=== PATIENT | female | born 1965 | race Asian ===

== ENCOUNTER 2019-04-23 15:16 | Emergency (ER) | payer OTHER ==
--- NOTE | 2019-04-23 15:19 | PDOC ---
History of Present Illness - General Chief Complaint: Sore Throat Stated Complaint: THROAT PROBLEM Time Seen by Provider: 04/23/19 15:19 History Source: Patient - History of Present Illness Initial Comments: 04/23/19 16:00 Pt presents to the ED complaining of a 6 day history of sore throat, hoarse voice, dry cough and nasal congestion. Denies fevers. States that her has been sick with similar symptoms. Tolerating PO. Past History - Past Medical History Allergies/Adverse Reactions: Allergies Allergy/AdvReac Type Severity Reaction Status Date / Time No Known Allergies Allergy Verified 04/23/19 15:18 Home Medications: Ambulatory Orders NK [No Known Home Medication] 04/23/19 Anemia: No Asthma: No Cancer: No Cardiac Disorders: No CVA: No COPD: No CHF: No Dementia: No Diabetes: No GI Disorders: Yes (GERD, DIVERTICULOSIS) Disorders: No HTN: No Hypercholesterolemia: No Liver Disease: No Seizures: No Thyroid Disease: No - Surgical History Abdominal Surgery: No Appendectomy: No Cardiac Surgery: No Cholecystectomy: No Lung Surgery: No Neurologic Surgery: No Orthopedic Surgery: No - Psycho Social/Smoking Cessation Hx Smoking Status: No Smoking History: Never smoked Have you smoked in the past 12 months: No Number of Cigarettes Smoked Daily: 0 Hx Alcohol Use: No Drug/Substance Use Hx: No Substance Use Type: None Hx Substance Use Treatment: No Review of Systems - Review of Systems Able to Perform ROS?: Yes Is the patient limited Cuban proficient: No Constitutional: Yes: Malaise HEENTM: Yes: Nose Congestion, Throat Pain Respiratory: Yes: Cough Cardiac (ROS): No: Symptoms Reported, Chest Pain, Edema, Irregular Heart Rate, Lightheadedness, Palpitations, Syncope, Chest Tightness, Other ABD/GI: No: Abdominal Distended, Abd. Pain w/ defecation, Blood Streaked Bowels , Constipated, Diarrhea, Difficulty Swallowing, Nausea, Poor Appetite, Poor Fluid Intake, Rectal Bleeding, Vomiting, Indigestion, Abdominal cramping, Tarry Stools, Other *Physical Exam - Physical Exam 04/23/19 16:16 gen: alert, NAD HEENT; TMs clear b/l. Throat: mild tonsilar swelling and erythema. No exudate uvula midline Cv: rrr no m/r/g Pulm: cta b/l Medical Decision Making - Medical Decision Making 04/23/19 16:17 Pt presents to the ED complaining of sore throat, dry cough and nasal congestion. Rapid strep is negative. Most likely viral pharyngitis. Will discharge home with instructions to return to the ED for worsening symptoms. Discharge - Discharge Information Problems reviewed: Yes Clinical Impression/Diagnosis: Pharyngitis Qualifiers: Pharyngitis/tonsillitis etiology: unspecified etiology Qualified Code(s): J02.9 - Acute pharyngitis, unspecified - Admission No - Follow up/Referral - Patient Discharge Instructions Patient Printed Discharge Instructions: Viral Pharyngitis Additional Instructions: return to the ED for severe pain, nausea or vomiting, severe throat swelling unable to swallow or breathe. - Post Discharge Activity
[2019-04-23 15:33] VITALS: BP 141/79; PULSE 88; TEMP 98.4; BMI 29.7
== END 2019-04-23 16:08 | disposition home or self-care (01) ==
LOC: FER 15:16
DX: J02.9 Acute pharyngitis, unspecified (principal)
CPT/HCPCS: 87070; 87880; 99281-25

== ENCOUNTER 2020-11-19 21:09 | Emergency (ER) | payer OTHER ==
[2020-11-19 21:22] VITALS: BP 130/83; PULSE 60; TEMP 98; BMI 29.2
[2020-11-19] MEDS ORDERED: ONDANSETRON 4 MG/2 ML VIAL IVPUSH ONE (21:56)
[2020-11-19] MEDS ORDERED: FAMOTIDINE 20 MG/50 ML IVPB 20 MG/50 ML MG IVPB ONE ×2 (21:56→22:01)
[2020-11-19] MEDS ORDERED: ACETAMINOPHEN 1000 MG/100 ML VIAL (NON FORMULARY) IVPB ONE (21:56)
[2020-11-19] MEDS ORDERED: SODIUM CHLORIDE 1,000 ML IV STA (21:56)
[2020-11-19] MEDS ORDERED: ACETAMINOPHEN INJECTION 100 ML IVPB ONE (22:01)
[2020-11-19] MEDS ORDERED: ONDANSETRON 4 MG/2 ML VIAL ONE (22:02)
[2020-11-19 22:40] LABS: BASO % 0.6 % (0-2.0); EOS % 1.3 % (0-4.5); HEMATOCRIT 40.4 % (32.4-45.2); HEMOGLOBIN 14.3 GM/dl (10.7-15.3); LYMPH % 28.6 % (8-40); MCHC 35.4 g/dl (32.0-36.0); MEAN CELL VOLUME 90.5 fl (80-96); MEAN PLT VOLUME 8.8 fl (7.5-11.1); MONO % 6.3 % (3.8-10.2); NEUT % 63.2 % (42.8-82.8); PLATELET COUNT 292 10^3/uL (134-434); RBC 4.47 M/mm3 (3.60-5.2); RDW 12.6 % (11.6-15.6); WHITE BLOOD COUNT 7.4 K/mm3 (4.0-10.8)
[2020-11-19 22:46] LABS: EPITHELIAL CELLS RARE /hpf
[2020-11-19 22:49] LABS: ALK PHOS 113 U/L (45-117); ANION GAP 10 MMOL/L (8-16); BILIRUBIN,TOTAL 0.4 mg/dl (0.2-1); CALCIUM 8.7 mg/dl (8.5-10); CHLORIDE 100 mmol/L (98-107); CO2 29 mmol/L (21-32); CREATININE 0.7 mg/dl (0.55-1.3); GLUCOSE,RANDOM 99 mg/dl (74-106); SGOT/AST 22 U/L (15-37); SGPT/ALT 17 U/L (13-61); SODIUM 139 mmol/L (136-145); TOT PROT 7.5 g/dl (6.4-8.2)
[2020-11-19] MEDS ORDERED: morphine CARPU-JECT 2 MG/1 ML DISP.SYRIN IVPUSH ONE (22:50)
[2020-11-19] MEDS ORDERED: morphine SULFATE 4 MG/ML VIAL ONE (22:51)
[2020-11-19 23:44] LABS: LIPASE 156 U/L (73-393)
[2020-11-20] MEDS ORDERED: morphine CARPU-JECT 2 MG/1 ML DISP.SYRIN IVPUSH ONE (00:09)
[2020-11-20] MEDS ORDERED: AMOX TR/POT CLAV 875MG/125MG TABLETS (FP) PO ONE (00:12)
[2020-11-20] MEDS ORDERED: AMOX TR/POT CLAV 875MG/125MG TABLETS (FP) ONE (00:14)
== END 2020-11-20 00:28 | disposition home or self-care (01) ==
LOC: FER 21:09
PROC: 3E0333Z Introduction of Anti-inflammatory into Peripheral Vein, Percutaneous Approach (ICD-10-PCS; principal; 2020-11-19)
PROC: 3E033GC Introduction of Other Therapeutic Substance into Peripheral Vein, Percutaneous Approach (ICD-10-PCS; 2020-11-19)
PROC: 3E033NZ Introduction of Analgesics, Hypnotics, Sedatives into Peripheral Vein, Percutaneous Approach (ICD-10-PCS; 2020-11-19)
PROC: 3E033NZ Introduction of Analgesics, Hypnotics, Sedatives into Peripheral Vein, Percutaneous Approach (ICD-10-PCS; 2020-11-19)
PROC: 3E033GC Introduction of Other Therapeutic Substance into Peripheral Vein, Percutaneous Approach (ICD-10-PCS; 2020-11-19)
PROC: 3E0337Z Introduction of Electrolytic and Water Balance Substance into Peripheral Vein, Percutaneous Approach (ICD-10-PCS; 2020-11-19)
DX: K52.9 Noninfective gastroenteritis and colitis, unspecified (principal)
CPT/HCPCS: 36415; 74177-TC; 80053; 81003; 81015; 83690; 84484; 85025; 99285-25; J0131; Q9967

== ENCOUNTER 2020-12-23 05:00 | Day surgery (SDC) | payer OTHER ==
[2020-12-20 17:07] VITALS: BMI 28.9
[2020-12-23] MEDS ORDERED: PROPOFOL 20 ML ONE ×2 (08:05)
[2020-12-23] MEDS ORDERED: KETOROLAC TROMETHAMINE 30 MG/1 ML VIAL ONE (08:21)
[2020-12-23] MEDS ORDERED: ONDANSETRON 4 MG/2 ML VIAL IVPUSH PRN (08:37)
[2020-12-23] MEDS ORDERED: IBUPROFEN 800 MG/8 ML IJ IVPB PRN (08:37)
[2020-12-23] MEDS ORDERED: oxyCODONE HCL 5 MG TABLET PO PRN (08:37)
[2020-12-23] MEDS ORDERED: IBUPROFEN 600 MG TABLET (FP) PO PRN (08:37)
[2020-12-23] MEDS ORDERED: LACTATED RINGERS SOLUTION 1,000 ML IV SCH (08:45)
[2020-12-23] MEDS ORDERED: ELECTROLYTE-148 SOLN 1,000 ML IV SCH (08:45)
[2020-12-23] MEDS ORDERED: ACETAMINOPHEN INJECTION 100 ML IVPB ONE (09:35)
[2020-12-23] MEDS ORDERED: ACETAMINOPHEN 1000 MG/100 ML VIAL (NON FORMULARY) IVPB ONE (09:39)
[2020-12-23] MEDS ORDERED: ONDANSETRON 4 MG/2 ML VIAL ONE (11:46)
[2020-12-23] MEDS ORDERED: ONDANSETRON 4 MG/2 ML VIAL IVPUSH ONE (11:55)
[2020-12-23 15:19] VITALS: BP 137/70; PULSE 58; TEMP 97.8
== END 2020-12-23 13:40 | disposition home or self-care (01) ==
LOC: JASU-SURG 05:00
PROVIDERS: ATTEND Obstetrics & Gynecology
PROC: 0UDB7ZX Extraction of Endometrium, Via Natural or Artificial Opening, Diagnostic (ICD-10-PCS; principal; 2020-12-23 08:00)
PROC: 0UJD8ZZ Inspection of Uterus and Cervix, Via Natural or Artificial Opening Endoscopic (ICD-10-PCS; 2020-12-23 08:00)
DX: N95.0 Postmenopausal bleeding (principal)
CPT/HCPCS: 81025; 88305-TC; 94760; J0131

== ENCOUNTER 2021-03-06 05:06 | Day surgery (SDC) | payer BC, OTHER ==
[2021-03-02 11:45] VITALS: BMI 28.7
[2021-03-06 08:46] VITALS: TEMP 97.8
[2021-03-06 08:55] VITALS: PULSE 56
[2021-03-06 09:10] VITALS: BP 119/76
== END 2021-03-06 09:53 | disposition home or self-care (01) ==
LOC: JASU-ENDO 05:06
PROVIDERS: ATTEND Internal Medicine Gastroenterology
PROC: 0DB98ZX Excision of Duodenum, Via Natural or Artificial Opening Endoscopic, Diagnostic (ICD-10-PCS; 2021-03-06)
PROC: 0DB78ZX Excision of Stomach, Pylorus, Via Natural or Artificial Opening Endoscopic, Diagnostic (ICD-10-PCS; 2021-03-06)
PROC: 0DB48ZX Excision of Esophagogastric Junction, Via Natural or Artificial Opening Endoscopic, Diagnostic (ICD-10-PCS; 2021-03-06)
PROC: 0DBK8ZX Excision of Ascending Colon, Via Natural or Artificial Opening Endoscopic, Diagnostic (ICD-10-PCS; principal; 2021-03-06 08:00)
DX: Z12.11 Encounter for screening for malignant neoplasm of colon (principal); D12.2 Benign neoplasm of ascending colon; K57.30 Diverticulosis of large intestine without perforation or abscess without bleeding; K21.00 Gastro-esophageal reflux disease with esophagitis, without bleeding; K44.9 Diaphragmatic hernia without obstruction or gangrene; K29.40 Chronic atrophic gastritis without bleeding; K64.8 Other hemorrhoids
CPT/HCPCS: 88305-TC; 88342-TC

== ENCOUNTER 2021-04-05 08:54 | Emergency (ER) | payer OTHER ==
[2021-04-05 08:59] VITALS: BP 137/83; PULSE 70; TEMP 97.8; BMI 24.6
[2021-04-05] MEDS ORDERED: DIPHTH,PERTUSS(ACELL),TET 0.5 ML DISP.SYRIN IM ONE ×2 (09:15→09:34)
[2021-04-05 10:22] LABS: BASO % 0.6 % (0-2.0); HEMATOCRIT 39.9 % (32.4-45.2); HEMOGLOBIN 13.6 GM/dL (10.7-15.3); LYMPH % 32.8 % (8-40); MCH 30.7 pg (25.7-33.7); MEAN CELL VOLUME 90.2 fl (80-96); MEAN PLT VOLUME 8.4 fl (7.5-11.1); MONO % 5.4 % (3.8-10.2); NEUT % 59.2 % (42.8-82.8); PLATELET COUNT 251 10^3/uL (134-434); RBC 4.42 M/mm3 (3.60-5.2); RDW 12.9 % (11.6-15.6); WHITE BLOOD COUNT 5.6 K/mm3 (4.0-10.0)
[2021-04-05 10:53] LABS: BLOOD UREA NITROGEN 13.2 mg/dL (7-18)
[2021-04-05 10:54] LABS: ALBUMIN 3.6 g/dl (3.4-5.0)
[2021-04-05 10:56] LABS: CREATININE 0.7 mg/dL (0.55-1.3)
[2021-04-05 10:58] LABS: BILIRUBIN,TOTAL 0.3 mg/dL (0.2-1); TOT PROT 7.5 g/dl (6.4-8.2)
[2021-04-05 12:11] LABS: HIV INTERPRETATION NEGATIVE (NEGATIVE)
== END 2021-04-05 09:45 | disposition home or self-care (01) ==
LOC: JERFT 08:54
PROC: 3E0234Z Introduction of Serum, Toxoid and Vaccine into Muscle, Percutaneous Approach (ICD-10-PCS; principal; 2021-04-05)
DX: S61.250A Open bite of right index finger without damage to nail, initial encounter (principal); Y04.1XXA Assault by human bite, initial encounter; Y93.F9 Activity, other caregiving
CPT/HCPCS: 36415; 80053; 85025; 86704; 86803; 87340; 87389; 87517; 90715; 99284-25

== ENCOUNTER 2021-06-02 18:41 | Emergency (ER) | payer BC, OTHER ==
[2021-06-02 18:49] VITALS: BP 149/74; PULSE 64; TEMP 97.9; BMI 27.9
[2021-06-02] MEDS ORDERED: TETRACAINE 0.5% OPHTH SOLN 2 ML BOTTLE ONE (19:12)
[2021-06-02] MEDS ORDERED: FLUORESCEIN NA 1 EA STRIP ONE (19:13)
[2021-06-02] MEDS ORDERED: TOBRA 0.3%/DEXAMETH 0.1% OPHTHALMIC SUSP 2.5 ML BTL OU STA (19:21)
[2021-06-02] MEDS ORDERED: TOBRA 0.3%/DEXAMETH 0.1% OPHTHALMIC SUSP 2.5 ML BTL ONE (19:28)
== END 2021-06-02 19:54 | disposition home or self-care (01) ==
LOC: FER 18:41
DX: H10.213 Acute toxic conjunctivitis, bilateral (principal)
CPT/HCPCS: 99283-25

== ENCOUNTER 2021-10-22 15:20 | Emergency (ER) | payer OTHER, BC ==
[2021-10-22 15:34] VITALS: BP 120/72; PULSE 66; BMI 28.3
[2021-10-22] MEDS ORDERED: KETOROLAC TROMETHAMINE 30 MG/1 ML VIAL IM ONE (15:44)
[2021-10-22] MEDS ORDERED: KETOROLAC TROMETHAMINE 30 MG/1 ML VIAL ONE (15:45)
== END 2021-10-22 16:23 | disposition home or self-care (01) ==
LOC: JER 15:20 → JERFT 15:20
PROC: 3E0233Z Introduction of Anti-inflammatory into Muscle, Percutaneous Approach (ICD-10-PCS; principal; 2021-10-22)
DX: M79.644 Pain in right finger(s) (principal)
CPT/HCPCS: 73140-TC-RT-FY; 99284-25

== ENCOUNTER 2022-08-26 08:56 | Emergency (ER) | payer BC ==
[2022-08-26 09:15] VITALS: BP 137/77; PULSE 61; RESP 16; TEMP 98.1; BMI 28.3
[2022-08-26] MEDS ORDERED: KETOROLAC TROMETHAMINE 60 MG/2 ML VIAL IM ONE (09:51)
[2022-08-26] MEDS ORDERED: KETOROLAC TROMETHAMINE 30 MG/1 ML VIAL ONE (09:57)
== END 2022-08-26 10:36 | disposition home or self-care (01) ==
LOC: FER 08:56
PROC: 3E0233Z Introduction of Anti-inflammatory into Muscle, Percutaneous Approach (ICD-10-PCS; principal; 2022-08-26)
DX: S93.602A Unspecified sprain of left foot, initial encounter (principal); M79.672 Pain in left foot; R22.42 Localized swelling, mass and lump, left lower limb; W18.42XA Slipping, tripping and stumbling without falling due to stepping into hole or opening, initial encounter; X50.1XXA Overexertion from prolonged static or awkward postures, initial encounter; W18.49XA Other slipping, tripping and stumbling without falling, initial encounter
CPT/HCPCS: 73610-TC-LT-FY; 73630-TC-LT; 99284-25

== ENCOUNTER 2023-08-04 09:57 | Emergency (ER) | payer BC, OTHER, SELFPAY ==
[2023-08-04 10:01] VITALS: BMI 17.8
[2023-08-04] MEDS ORDERED: guaiFENesin/CODEINE 5 ML UNIT-DOSE CUPS PO ONE ×2 (11:57→12:01)
[2023-08-04 11:59] LABS: BASO % 0.6 % (0-2.0); EOS % 0.7 % (0-4.5); HEMATOCRIT 41.5 % (32.4-45.2); HEMOGLOBIN 13.9 GM/dL (10.7-15.3); LYMPH % 30.1 % (8-40); MCH 29.9 pg (25.7-33.7); MCHC 33.5 g/dl (32.0-36.0); MEAN CELL VOLUME 89.3 fl (80-96); MEAN PLT VOLUME 8.2 fl (7.5-11.1); MONO % 6.1 % (3.8-10.2); NEUT % 62.5 % (42.8-82.8); PLATELET COUNT 202 10^3/uL (134-434); RBC 4.65 M/mm3 (3.60-5.2); WHITE BLOOD COUNT 5.8 K/mm3 (4.0-10.0)
[2023-08-04] MEDS ORDERED: MAG HYDROX/AL HYDROX/SIMETH 30 ML UNIT-DOSE CUP ONE (11:59)
[2023-08-04] MEDS ORDERED: FAMOTIDINE 20 MG/50 ML IVPB 20 MG/50 ML MG IVPB ONE (11:59)
[2023-08-04] MEDS: guaiFENesin 200 MG/10 ML 10 ML UNIT-DOSE CUPS PO ONE (12:12)
[2023-08-04] MEDS: MAG HYDROX/AL HYDROX/SIMETH 30 ML UNIT-DOSE CUP PO ONE (12:12)
[2023-08-04] MEDS: FAMOTIDINE 20 MG/50 ML IVPB 20 MG/50 ML MG IVPB ONE (12:12)
[2023-08-04] MEDS: SODIUM CHLORIDE 0.9% 500 ML INFUS.BAG IV ONE (12:12)
[2023-08-04 12:18] LABS: POTASSIUM 4.2 mmol/L (3.5-5.1)
[2023-08-04 12:20] LABS: ALBUMIN 3.3 g/dl (3.4-5.0); CALCIUM 8.9 mg/dL (8.5-10.1)
[2023-08-04 12:23] LABS: CREATININE 0.7 mg/dL (0.55-1.3)
[2023-08-04 12:25] LABS: TOT PROT 6.9 g/dl (6.4-8.2)
[2023-08-04 12:26] LABS: BILIRUBIN,TOTAL 0.4 mg/dL (0.2-1)
[2023-08-04 13:12] VITALS: BP 145/73; PULSE 64; RESP 20; TEMP 98.2
== END 2023-08-04 13:12 | disposition home or self-care (01) ==
LOC: JER 09:57
PROC: 3E033GC Introduction of Other Therapeutic Substance into Peripheral Vein, Percutaneous Approach (ICD-10-PCS; principal; 2023-08-04)
DX: R07.89 Other chest pain (principal); R06.02 Shortness of breath; R05.9 Cough, unspecified; R51.9 Headache, unspecified; J10.1 Influenza due to other identified influenza virus with other respiratory manifestations; T37.5X5A Adverse effect of antiviral drugs, initial encounter; Z20.822 Contact with and (suspected) exposure to COVID-19
CPT/HCPCS: 0241U-QW; 36415; 71046-TC-FY; 80053; 83690; 84484; 85025; 93005; 93010; 99285-25

== ENCOUNTER 2023-08-07 15:37 | Observation (INO) | payer BC ==
[2023-08-07] MEDS: MAG HYDROX/AL HYDROX/SIMETH 30 ML UNIT-DOSE CUP PO ONE (16:34)
[2023-08-07] MEDS ORDERED: FAMOTIDINE 20 MG/50 ML IVPB 20 MG/50 ML MG IVPB ONE (16:35)
[2023-08-07] MEDS ORDERED: ONDANSETRON 4 MG/2 ML VIAL ONE (16:35)
[2023-08-07] MEDS: ONDANSETRON 4 MG/2 ML VIAL IVPUSH ONE (16:41)
[2023-08-07] MEDS: LACTATED RINGERS SOLUTION 1000 ML INFUS.BAG IV ONE ×2 (16:41→20:33)
[2023-08-07] MEDS: FAMOTIDINE 20 MG/50 ML IVPB 20 MG/50 ML MG IVPB ONE (16:41)
[2023-08-07 16:46] LABS: BASO % 0.6 % (0-2.0); EOS % 1.1 % (0-4.5); HEMATOCRIT 39.4 % (32.4-45.2); HEMOGLOBIN 13.4 GM/dL (10.7-15.3); LYMPH % 31.5 % (8-40); MCH 29.7 pg (25.7-33.7); MEAN CELL VOLUME 87.5 fl (80-96); MEAN PLT VOLUME 8.6 fl (7.5-11.1); MONO % 5.4 % (3.8-10.2); NEUT % 61.4 % (42.8-82.8); PLATELET COUNT 258 10^3/uL (134-434)
[2023-08-07 16:59] VITALS: BMI 28.3
[2023-08-07 17:09] LABS: POTASSIUM 4.7 mmol/L (3.5-5.1)
[2023-08-07 17:11] LABS: ALBUMIN 3.1 g/dl (3.4-5.0); CALCIUM 8.8 mg/dL (8.5-10.1)
[2023-08-07 17:12] LABS: MAGNESIUM 2.5 mg/dL (1.8-2.4)
[2023-08-07 17:14] LABS: CREATININE 0.8 mg/dL (0.55-1.3)
[2023-08-07 17:16] LABS: BILIRUBIN,TOTAL 0.4 mg/dL (0.2-1)
[2023-08-07] MEDS ORDERED: PANTOPRAZOLE SODIUM 40 MG VIAL ONE (17:43)
[2023-08-07] MEDS ORDERED: PANTOPRAZOLE SODIUM 40 MG/100 ML BAG IVPB ONE (17:43)
[2023-08-07] MEDS ORDERED: LIDOCAINE VISCOUS 2% ORAL/TOP 15 ML UNIT-DOSE CUP ONE (17:43)
[2023-08-07] MEDS: LIDOCAINE VISCOUS 2% ORAL/TOP 15 ML UNIT-DOSE CUP MM ONE (17:46)
[2023-08-07] MEDS: PANTOPRAZOLE SODIUM 40 MG VIAL IVPUSH ONE (17:46)
[2023-08-07] MEDS ORDERED: ACETAMINOPHEN INJECTION 100 ML IVPB ONE (18:30)
[2023-08-07] MEDS: ACETAMINOPHEN 1000 MG/100 ML BAG IVPB ONE (18:38)
[2023-08-07] MEDS: SODIUM PHOSPHATE/NA BIPHOS 133 ML ENEMA PR ONE (18:56)
[2023-08-07] MEDS ORDERED: METOCLOPRAMIDE HCL INJECTION 10 MG/2 ML VIAL ONE (19:43)
[2023-08-07] MEDS: METOCLOPRAMIDE HCL INJECTION 10 MG/2 ML VIAL IVPUSH ONE (19:49)
[2023-08-08] MEDS ORDERED: PATIENT'S OWN MEDICATION (NON-FORMULARY) (Omeprazole [Omeprazole] 20 MG Tablet.Dr) PO SCH
[2023-08-08] MEDS ORDERED: ACETAMINOPHEN 325 MG TABLET (FP) PO PRN (00:14)
[2023-08-08] MEDS: LACTATED RINGERS SOLUTION 1000 ML INFUS.BAG IV ONE (02:06)
[2023-08-08] MEDS: ONDANSETRON 4 MG/2 ML VIAL IVPUSH PRN (06:28)
[2023-08-08 09:28] LABS: BASO % 0.6 % (0-2.0); EOS % 1.9 % (0-4.5); HEMATOCRIT 40.8 % (32.4-45.2); HEMOGLOBIN 13.7 GM/dL (10.7-15.3); LYMPH % 27.6 % (8-40); MCH 29.7 pg (25.7-33.7); MCHC 33.5 g/dl (32.0-36.0); MEAN CELL VOLUME 88.9 fl (80-96); MONO % 5.2 % (3.8-10.2); NEUT % 64.7 % (42.8-82.8); PLATELET COUNT 256 10^3/uL (134-434); RDW 12.9 % (11.6-15.6); WHITE BLOOD COUNT 6.3 K/mm3 (4.0-10.0)
[2023-08-08 09:31] VITALS: BP 126/77; PULSE 60; RESP 16; TEMP 98.5
[2023-08-08 09:42] LABS: POTASSIUM 4.1 mmol/L (3.5-5.1)
[2023-08-08] MEDS: ENOXAPARIN NA (PORCINE) 40 MG/0.4 ML DISP.SYRIN SQ SCH (09:43)
[2023-08-08] MEDS: PANTOPRAZOLE 40 MG TABLET PO SCH (09:44)
[2023-08-08 09:45] LABS: CALCIUM 8.8 mg/dL (8.5-10.1)
[2023-08-08 09:46] LABS: ALBUMIN 3.3 g/dl (3.4-5.0); BLOOD UREA NITROGEN 7.2 mg/dL (7-18); MAGNESIUM 2.7 mg/dL (1.8-2.4)
[2023-08-08 09:49] LABS: CREATININE 0.8 mg/dL (0.55-1.3); PHOSPHOROUS 3.2 mg/dL (2.5-4.9)
[2023-08-08 09:50] LABS: BILIRUBIN,TOTAL 0.4 mg/dL (0.2-1); TOT PROT 6.9 g/dl (6.4-8.2)
== END 2023-08-08 10:34 | disposition home or self-care (01) ==
LOC: JER 15:37 → JERBED 20:38 → J5S 21:52
PROVIDERS: ADMIT Internal Medicine; ATTEND Internal Medicine
PROC: 3E0337Z Introduction of Electrolytic and Water Balance Substance into Peripheral Vein, Percutaneous Approach (ICD-10-PCS; principal; 2023-08-07)
DX: K21.9 Gastro-esophageal reflux disease without esophagitis (principal); K57.90 Diverticulosis of intestine, part unspecified, without perforation or abscess without bleeding; K58.9 Irritable bowel syndrome, unspecified; K27.9 Peptic ulcer, site unspecified, unspecified as acute or chronic, without hemorrhage or perforation; K29.60 Other gastritis without bleeding; E04.1 Nontoxic single thyroid nodule; Z88.8 Allergy status to other drugs, medicaments and biological substances; Z88.5 Allergy status to narcotic agent; K59.00 Constipation, unspecified; E03.9 Hypothyroidism, unspecified; Z86.16 Personal history of COVID-19; D32.9 Benign neoplasm of meninges, unspecified
CPT/HCPCS: 36415; 71045-TC-FY; 71260-TC; 74021-TC-FY; 74177-TC; 80053; 82962; 83690; 83735; 84100; 84484; 85025; 93005; 93010; 99285-25; G0378; J0131; Q9967